=== PATIENT | male | born 1985 | race Caucasian/White ===

== ENCOUNTER 2024-04-19 23:24 | Inpatient (IN) | payer OTHER ==
[2024-04-19] MEDS: Morphine 2 MG/ML VIAL SLOW IVP PRN (23:56)
[2024-04-19] MEDS: Ketorolac Tromethamine 30 MG (1 mL) VIAL IVP SCH (23:57)
[2024-04-20 00:42] VITALS: BMI 35.4
[2024-04-20] MEDS: Cefepime 2 GM in Sodium Chloride 0.9% 100 ML IVPB SCH (02:54)
[2024-04-20] MEDS: Lactated Ringer's 1,000 ML IV SCH (02:54)
[2024-04-20] MEDS: HYDROcodone/Acetaminophen 10/325 mg Tablet PO PRN (03:04)
[2024-04-20] MEDS: Vancomycin (BATCH) 2 GM in Premix 1 BAG IVPB SCH (05:15)
[2024-04-20 05:28] LABS: Vancomycin, Random 9.9 ug/mL (See Comment)
[2024-04-20] MEDS: LevoFLOXacin 750 mg/D5W 750 MG in Premix 1 BAG IVPB SCH (06:16)
[2024-04-20] MEDS ORDERED: Vancomycin 1 GM in Premix 1 BAG IVPB SCH (09:00)
[2024-04-20] MEDS: Gabapentin 300 MG CAP PO SCH (09:28)
[2024-04-20] MEDS: Famotidine 20 MG TAB PO SCH (09:29)
[2024-04-20] MEDS: Senokot S 8.6-50 MG TAB PO SCH (09:29)
[2024-04-20] MEDS: traMADol HCl 50 MG TAB PO SCH (09:29)
[2024-04-20 15:00] LABS: #Basophils Less than 0.03 10x3/uL (0.0-0.2); %Basophils 0.3 % (0.0-1.0); %Eosinophils 1.1 % (0.0-10.0); %Lymphocytes 19.1 % (21.0-51.0); %Monocytes 15.4 % (0.0-10.0); %Neutrophils 63.8 % (42.0-75.0); Hematocrit 34.6 % (42.0-52.0); Hemoglobin 11.6 g/dL (14.0-18.0); Mean Corpuscular HGB CONC 33.5 g/dL (32.0-36.0); Mean Corpuscular Hemoglobin 29.4 pg (27.0-31.0); Mean Corpuscular Volume 87.8 fL (78.0-98.0); Mean Platelet Volume 9.3 fL (7.4-10.4); Platelet Count 167 10x3/uL (130-400); RBC Distribution Width 12.5 % (11.5-14.5); Red Blood Cell (RBC) Count 3.94 mill/uL (4.70-6.10)
[2024-04-20 15:23] LABS: Anion Gap 10 mmol/L (10-20); BUN (Urea Nitrogen) 9 mg/dL (8.9-20.6); Calc. Creatinine Clearance 232 mL/min (70-130); Calcium 8.7 mg/dL (7.8-10.44); Carbon Dioxide 24 mmol/L (22-29); Chloride 107 mmol/L (98-107); Estimated GFR 118; Glucose 109 mg/dL (70-105); Potassium 3.6 mmol/L (3.5-5.1); Sodium 137 mmol/L (136-145)
[2024-04-21] MEDS: Morphine 2 MG/ML VIAL SLOW IVP SCH (00:22)
[2024-04-21] MEDS: Acetaminophen 325 MG TAB PO PRN (02:24)
[2024-04-21 05:15] LABS: #Basophils Less than 0.03 10x3/uL (0.0-0.2); %Basophils 0.3 % (0.0-1.0); %Eosinophils 1.2 % (0.0-10.0); %Lymphocytes 22.3 % (21.0-51.0); %Monocytes 17.1 % (0.0-10.0); %Neutrophils 58.8 % (42.0-75.0); Hematocrit 34.4 % (42.0-52.0); Hemoglobin 11.6 g/dL (14.0-18.0); Mean Corpuscular HGB CONC 33.7 g/dL (32.0-36.0); Mean Corpuscular Hemoglobin 28.9 pg (27.0-31.0); Mean Corpuscular Volume 85.8 fL (78.0-98.0); Mean Platelet Volume 9.4 fL (7.4-10.4); Platelet Count 179 10x3/uL (130-400); RBC Distribution Width 12.3 % (11.5-14.5); Red Blood Cell (RBC) Count 4.01 mill/uL (4.70-6.10)
[2024-04-21 05:27] LABS: Anion Gap 12 mmol/L (10-20); BUN (Urea Nitrogen) 7 mg/dL (8.9-20.6); Calc. Creatinine Clearance 186 mL/min (70-130); Calcium 8.7 mg/dL (7.8-10.44); Carbon Dioxide 25 mmol/L (22-29); Chloride 104 mmol/L (98-107); Estimated GFR 109; Glucose 115 mg/dL (70-105); Potassium 3.7 mmol/L (3.5-5.1); Sodium 137 mmol/L (136-145)
[2024-04-21] MEDS: Polyethylene Glycol 3350 17 GM Packet PO SCH (09:05)
[2024-04-21] MEDS: Morphine 4 MG/ML VIAL SLOW IVP PRN (15:48)
[2024-04-21 16:36] VITALS: BP 135/84; TEMP 99.5
== END 2024-04-21 16:50 | disposition home or self-care (01) | DRG 862 ==
LOC: MSONC 23:24 → OBSVTOIN 23:42
PROVIDERS: ADMIT Internal Medicine; ATTEND Family Medicine
DX: T81.44XA Sepsis following a procedure, initial encounter (principal); A41.50 Gram-negative sepsis, unspecified; M00.9 Pyogenic arthritis, unspecified; Z79.891 Long term (current) use of opiate analgesic; E66.9 Obesity, unspecified; Z68.35 Body mass index [BMI] 35.0-35.9, adult; Z79.899 Other long term (current) drug therapy
CPT/HCPCS: 36415; 80048; 80202; 85025; 86141; 97139; J0692; J1885; J1956; J2272; J3370; J7120